=== PATIENT | female | born 2005 | race Caucasian/White ===

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

== ENCOUNTER 2025-01-13 11:11 | Emergency (ER) | payer OTHER ==
[~2025-01-13] VITALS: Ht 165.1 cm; Wt 84.2 kg
[~2025-01-13 11:11] MED LIST changes: -IBUP-1022 PO; +IBUP600T42 PO
[2025-01-13 11:59] LABS: BASO # 0.0 10^3/uL (0.0-0.2); BASO % 0.4 % (0.0-1.0); EOS # 0.4 10^3/uL (0.0-0.5); EOS % 4.1 % (0.0-3.0); LYMPH # 3.0 10^3/uL (1.5-5.0); LYMPH % 33.3 % (24.0-44.0); MONO # 1.1 10^3/uL (0.0-0.8); MONO % 12.1 % (2.0-8.0); NEUTROPHILS # 4.5 10^3/uL (1.5-8.5); NEUTROPHILS % 49.9 % (36.0-66.0); PLATELET COUNT, AUTOMATED 418 10^3/uL (150-450)
[2025-01-13 12:01] LABS: KETONE, URINE AUTO RFX NEGATIVE (NEGATIVE); LEUKOCYTE ESTERASE UR AUTO RFX NEGATIVE (NEGATIVE); MUCUS, URINE RFX SMALL (NEGATIVE); NITRITE, URINE AUTO RFX NEGATIVE (NEGATIVE); RBC, URINE AUTO RFX 64 /HPF (0-3); SQUAM EPITHELIAL CELL UR AURFX 1 /HPF (0-6); WBC, URINE AUTO RFX 1 /HPF (0-3)
[2025-01-13 12:26] LABS: ALT/SGPT 38 U/L (7.0-40); AST/SGOT 24 U/L (<34); CALCIUM LEVEL 10.0 MG/DL (8.5-10.1); CARBON DIOXIDE LEVEL 26 MMOL/L (20-31); CHLORIDE LEVEL 102 MMOL/L (98-107); CREATININE FOR GFR 0.49 MG/DL (0.55-1.30); GLOMERULAR FILTRATION RATE > 90.0 (>60); POTASSIUM SERUM 4.5 MMOL/L (3.5-5.1); SODIUM LEVEL 137 MMOL/L (136-145)
[2025-01-13 12:33] LABS: HCG, SERUM QUALITATIVE NEGATIVE (NEGATIVE)
[2025-01-13] MEDS ORDERED: HOME MED LIST COMPLETE! XX SCH (13:15)
[2025-01-13] MEDS ORDERED: PANT40TA29 PO (13:16)
[2025-01-13] MEDS ORDERED: CARA1TAB6 PO (13:16)
[2025-01-13] MEDS: SUCRALFATE SUSP 1GM/10ML UD PO ONE (13:49)
[2025-01-13] MEDS: PANTOPRAZOLE 40MG VIAL IV ONE (13:49)
[2025-01-13 13:54] VITALS: BP 116/59; TEMP 97.4; O2SAT 98
== END 2025-01-13 14:07 | disposition home or self-care (01) ==
LOC: M ED 11:11
DX: R10.9 Unspecified abdominal pain (principal); Z88.2 Allergy status to sulfonamides; Z79.899 Other long term (current) drug therapy
CPT/HCPCS: 80048; 80076; 81001; 83690; 84703; 85025; 96374; 99283; J2470

== ENCOUNTER → 2025-01-27 | Outpatient (CLI) | payer OTHER ==
[~2025-01-27] MED LIST changes: +CARA1TAB6 PO; +PANT40TA29 PO
[2025-01-27 11:43] LABS: LUTEINIZING HORMONE 10.4 mIU/ML; PROLACTIN 5.55 NG/ML
[2025-01-27 11:44] LABS: TESTOSTERONE 50.0 NG/DL (14-76)
[2025-01-28 16:55] LABS: ESTRADIOL 146.4 PG/ML
[2025-01-28 20:53] LABS: SEX HORMONE BINDING GLOBULIN 43 nmol/L (17-124)
== END ==
LOC: M PLALAB 09:05
PROVIDERS: ATTEND Physician Assistant
DX: N93.9 Abnormal uterine and vaginal bleeding, unspecified (principal)

== ENCOUNTER → 2025-01-27 | Outpatient (REF) | payer OTHER, MEDICAID ==
[2025-01-27 19:28] LABS: CALCIUM LEVEL 9.6 MG/DL (8.5-10.1); CARBON DIOXIDE LEVEL 28 MMOL/L (20-31); CHLORIDE LEVEL 101 MMOL/L (98-107); CHOLESTEROL LEVEL 223 MG/DL (<200); CHOLESTEROL RISK RATIO 3.29 (<5); CREATININE FOR GFR 0.50 MG/DL (0.55-1.30); GLOMERULAR FILTRATION RATE > 90.0 (>60); HCG, SERUM QUALITATIVE NEGATIVE (NEGATIVE); IRON (FE) 33 UG/DL (50-170); LDL CHOLESTEROL 135.2 MG/DL (<100); MAGNESIUM LEVEL 1.9 MG/DL (1.8-2.4); NON-HDL-C 155.4 MG/DL; POTASSIUM SERUM 4.1 MMOL/L (3.5-5.1); SODIUM LEVEL 135 MMOL/L (136-145); TRIGLYCERIDES LEVEL 101 MG/DL (<150)
[2025-01-27 19:29] LABS: VITAMIN B12 LEVEL 531 PG/ML (211-911)
[2025-01-27 20:02] LABS: ESTIMATED AVERAGE GLUCOSE 108.0 MG/DL (60-110)
== END ==
LOC: M LAB REF 16:49
PROVIDERS: ATTEND Nurse Practitioner Family
DX: R51.9 Headache, unspecified (principal); N92.6 Irregular menstruation, unspecified; E66.9 Obesity, unspecified

== ENCOUNTER → 2025-03-05 | Outpatient (CLI) | payer OTHER | LOC: M WHC 14:04 | PROVIDERS: ATTEND Physician Assistant | DX: N91.5 Oligomenorrhea, unspecified (principal); R93.89 Abnormal findings on diagnostic imaging of other specified body structures ==

== ENCOUNTER → 2025-04-22 | Outpatient (REF) | payer OTHER | LOC: M LAB REF 17:15 | PROVIDERS: ATTEND Physician Assistant | DX: B34.9 Viral infection, unspecified (principal) ==